=== PATIENT | female | born 1960 | race Caucasian/White ===

== ENCOUNTER 2018-09-01 07:10 | Inpatient (IN) ==
--- NOTE | 2018-08-18 13:24 | PAT Medication Instructions ---
Medication Instructions Date of Service August 18, 2018 Home Medications amantadine HCl 2 cap PO BID levothyroxine 175 mcg PO QAM naproxen 500 mg PO BID PRN natalizumab [Tysabri] 1 dose IV MONTHLY venlafaxine 225 mg PO QAM ASK your surgeon for instructions naproxen 500 mg PO BID PRN ASK your prescriber and surgeon amantadine HCl 2 cap PO BID natalizumab [Tysabri] 1 dose IV MONTHLY Take morning of surgery With a small sip of water, OTHERWISE NOTHING TO EAT OR DRINK AFTER MIDNIGHT: levothyroxine 175 mcg PO QAM venlafaxine 225 mg PO QAM Other Notes If you have any questions please call us at [phone] or [phone] or [phone] or [phone]
--- NOTE | 2018-08-18 13:58 | Anesthesiology Consultation ---
Date of Service August 18, 2018 Assessment & Plan (1) Encounter for pre-operative examination: Chart Review Chart Review: Acceptable Risk for Surgery and Patient seen in Pre Admission Testing Teaching & Discussion Pre-Anesthesia Teaching/Discussion Notes: Instructed NPO after midnight before surgery,except medications with 15 cc of water. Medication instructions provided according to the PAT guidelines. History Surgery Operation Date: 09/01/18 09:50 Proposed Procedures p Right Total Hip Arthroplasty - Jaircarlos Carroll Height/Weight Height: 5 ft 9 in Weight: 111.7 kg Allergies Allergy/AdvReac Type Severity Reaction Status Date / Time paroxetine [From Paxil] Allergy Intermediate THROAT Verified 08/15/18 12:17 SWELLING Medications Home Medications Medication Instructions Recorded Confirmed Last Taken amantadine HCl 2 cap PO BID 08/15/18 08/15/18 Unknown levothyroxine 175 mcg PO QAM 08/15/18 08/15/18 Unknown naproxen 500 mg PO BID PRN 08/15/18 08/15/18 Unknown natalizumab [Tysabri] 1 dose IV MONTHLY 08/15/18 08/15/18 Unknown venlafaxine 225 mg PO QAM 08/15/18 08/15/18 Unknown Past Medical History Medical History Anxiety Cancer BCC S/P EXCISION Hypothyroidism Multiple sclerosis ON NATALIZUMAB AND AMANTADINE (2/2 MS RELATED FATIGUE PER PATIENT); NO RECENT FLARES- "STABLE"; FOLLOWS WITH NEURO Obesity Osteoarthritis Restless leg syndrome Temporomandibular joint disorder Varicose vein of leg S/P INJECTIONS Past Family History Family History Father Family history of diabetes mellitus Past Surgical History Surgical History Ganglion cyst RIGHT ANKLE CYSTECTOMY H/O eye surgery RIGHT EYE FOREIGN BODY EXTRACTION H/O hysterectomy with oophorectomy History of bilateral tubal ligation History of bladder surgery BLADDER SURGERY History of dilatation and curettage X 2 History of removal of cyst BACK CYSTECTOMY Past Anesthesia History No Family Hx of Anesthesia Complications and Other Generalized weakness, fatigue and pain x 24 hours s/p D&C. History of PONV No Motion Sickness Screening History of Motion Sickness: Yes (OCCASIONAL) Social History Smoking Status: Former smoker Do You Dip or Chew Tobacco: No Smoking End Date: QUIT 2017; INTERMITTENT X 20+ YEARS Hx Alcohol Use: Yes Alcohol type: beer and wine alcohol intake frequency: a few times a month Hx Substance Use: No substance use type: does not use Exercise / Class Metabolic Activity II 4-5 Yardwork/Stairs/Walk up hill Review of Systems Patient denies chest pain, shortness of breath, dyspnea on exertion, cough, wheezing, palpitations. Physical Exam Vital Signs VITALS BP 113/68 P 73 TEMP 98.3 SP02 98%RA RESP 18 PHYSICAL Full neck and c-spine range of motion. Mild cervicalgia with extension. Full TMJ range of motion. TMD 4 finger breaths Mallampati Score 3 Dentition: missing molars Lungs: clear throughout to auscultation Cardiac: regular rate and rhythm, no murmurs noted Spine: normal Carotid arteries: negative bruit Extremities: no edema Large tongue. Testing Electrocardiogram Date: 01/21/18 SR at 73bpm. Chest X-Ray Date: 01/21/18 Findings: + NAD Echocardiogram Date: 02/12/18 LVEF 55-60%. No significant valvular disease. Stress Test Date: 02/12/18 Type: nuclear SPECT perfusion images considered "within normal limits." No significant ischemia or infarction noted. post stress LVEF 77%. 59% MPHR. Laboratory Results 08/18/18 14:38 08/18/18 14:38 Blood Type O Positive 08/18/18 14:38 Antibody Screen NEGATIVE 08/18/18 14:38 PT 10.3 Seconds (9.0-12.0) 08/18/18 14:38 INR 1.0 (0.9-1.1) 08/18/18 14:38 APTT 24.6 Seconds (21.0-31.0) 08/18/18 14:38 Urine Color Dark Yellow 08/18/18 14:38 Urine Appearance Clear (Clear) 08/18/18 14:38 Urine pH 5.0 (4.5-7.5) 08/18/18 14:38 Ur Specific [place] 1.034 (1.000-1.030) H 08/18/18 14:38 Urine Protein Negative (Negative) 08/18/18 14:38 Urine Glucose (UA) Negative (Negative) 08/18/18 14:38 Urine Ketones Trace (Negative) H 08/18/18 14:38 Urine Nitrite Negative (Negative) 08/18/18 14:38 Ur Leukocyte Esterase Negative (Negative) 08/18/18 14:38
[2018-08-18 15:31] LABS: Hematocrit (blood only) 35.6 % (37-47); Hemoglobin 12.2 g/dL (12.0-16.0); Mean Corpuscular Hgb Conc 34.3 g/dL (32-36); Mean Corpuscular Volume 93.2 fL (80-100); Mean Platelet Volume 9.7 fL (7.4-10.4); Nucleated RBC # (auto) 0.21 K/uL (0-0); Nucleated RBC % (auto) 4.3 %; Platelet Count 177 K/uL (130-400); RDW Coefficient of Variation 14.1 % (11.5-14.5); RDW Standard Deviation 47.9 fL (36.4-46.3); Red Blood Count 3.82 M/uL (4.2-5.4); White Blood Count 4.93 K/uL (4.8-10.8)
[2018-08-18 15:35] LABS: Appearance Urine Clear (Clear); Blood Urine Negative (Negative); Color Urine Dark Yellow; Glucose Urine UA Negative (Negative); Ketones Urine Trace (Negative); Leukocyte Esterase Urine Negative (Negative); Nitrite Urine Negative (Negative); Protein Urine Negative (Negative); Specific Gravity Urine 1.034 (1.000-1.030); Urobilinogen Urine Negative (Negative)
[2018-08-18 15:42] LABS: Bilirubin Urine Negative (Negative); Ictotest Urine Negative (Negative)
[2018-08-18 15:44] LABS: Albumin Level 3.6 gm/dl (3.4-5.0); BUN Creatinine Ratio 19.6 (10-20); Calcium 8.8 mg/dl (8.5-10.1); Creatinine Clr Calc Pharmacy 124.5 ml/min; Est GFR (African American) 112.4; Potassium 3.7 mmol/L (3.5-5.1)
[2018-08-18 15:47] LABS: Albumin Globulin Ratio 1.3 (0.9-2); Bilirubin,Total 0.6 mg/dl (0.2-1); Globulin 2.8 gm/dl (2.5-4.0); Total Protein 6.4 gm/dl (6.4-8.2)
[2018-08-18 15:50] LABS: Partial Thromboplastin Ratio 0.9; Partial Thromboplastin Time 24.6 Seconds (21.0-31.0); Prothrombin Time 10.3 Seconds (9.0-12.0)
[2018-08-18 16:21] LABS: Basophils # (auto) 0.07 K/uL (0-0.2); Basophils % (auto) 1.4 %; Eosinophils # (auto) 0.22 K/uL (0-0.5); Eosinophils % (auto) 4.5 %; Immature Granulocytes # (auto) 0.07 K/uL (0.00-0.02); Immature Granulocytes % (auto) 1.4 %; Lymphocytes % (auto) 50.7 %; Monocytes # (auto) 0.28 K/uL (0.11-0.59); Monocytes % (auto) 5.7 %; Neutrophils # (auto) 1.79 K/uL (1.4-6.5); Neutrophils % (auto) 36.3 %; RBC Morphology Unremarkable
[~2018-09-01 07:10] MED LIST: ACETAMINOPHEN 500 MG TAB PO SCH; BUPIVACAINE 0.5 % 5 MG/1 ML PF 10ML VIAL ONE; CEFAZOLIN 2000MG 2,000 MG/15 ML SYR IV SCH; CeleBREX 200 MG CAP PO SCH; FAMOTIDINE 20 MG TAB PO SCH; LR 500ML BOLUS, THEN 15ML/HR IV SCH; LR 60ML/HR IV SCH; METOCLOPRAMIDE HCL 10 MG TABLET PO SCH; ROPIVACAINE 0.5% HCL/PF 150 MG, BUPIVACAINE 0.5% MPF 30 ML, EPINEPHrine 30MG/30ML (OR U... INFIL SCH; TRANEXAMIC ACID 1,000 MG **IV Intra-op IV SCH; TRANEXAMIC ACID 1,000 MG **IV Pre-op IV SCH; dexAMETHasone 4 MG TAB PO SCH
[2018-09-01] MEDS ORDERED: ACETAMINOPHEN 1,000 MG/100 ML VIAL IV ONE (07:30)
[2018-09-01] MEDS ORDERED: ATROPINE SULFATE 0.1 MG/ML 10ML SYR IV PRN (07:30)
[2018-09-01] MEDS ORDERED: PHENYLEPHRINE 100MCG/ML 5ML SYR IV PRN (07:30)
[2018-09-01] MEDS ORDERED: ONDANSETRON INJ 2 MG/ML 2 ML VIAL IV PRN ×2 (07:30→12:59)
[2018-09-01] MEDS ORDERED: HYDROmorphone INJ 1 MG/ML SYRINGE IV PRN (07:30)
[2018-09-01] MEDS ORDERED: PROMETHAZINE HCL 12.5 MG in SODIUM CHLORIDE 0.9% 50 ML IV PRN (07:30)
[2018-09-01] MEDS ORDERED: ePHEDrine sulfate 50 MG/ML AMP IV PRN (07:30)
[2018-09-01] MEDS ORDERED: LIDOCAINE HCL 2% 2 ML VIAL/AMP(20MG/ML) INFIL ONE (07:55)
[2018-09-01] MEDS ORDERED: PROPOFOL IV EMULSION 10 MG/ML 20 ML VIAL IV ONE (07:55)
[2018-09-01] MEDS ORDERED: ONDANSETRON INJ 2 MG/ML 2 ML VIAL ONE (07:55)
[2018-09-01] MEDS ORDERED: fentaNYL citrate 100 MCG/2 ML VIAL ONE ×2 (07:55→10:15)
[2018-09-01] MEDS ORDERED: ROCURONIUM BROMIDE 10 MG/ML 5 ML VIAL ONE (07:55)
[2018-09-01] MEDS ORDERED: DEXAMETHASONE SOD INJ 4 MG/ML VIAL ONE (07:55)
[2018-09-01] MEDS ORDERED: MIDAZOLAM HCL 1 MG/ML 2ML VIAL ONE (07:55)
--- NOTE | 2018-09-01 08:38 | History & Physical Report ---
Date of Service September 01, 2018 Assessment & Plan (1) Degenerative joint disease of right hip: plan is to admit and undergo right migue and home dc tomorrow. History of Present Illness Chief Complaint: right hip pain Primary Care Provider: Nicholas Chou pt with right hip pain for years, cant walk well, has tried therapy and nsaids with no relief. ready for migue Allergies Allergy/AdvReac Type Severity Reaction Status Date / Time paroxetine [From Paxil] Allergy Intermediate THROAT Verified 09/01/18 07:38 SWELLING Home Medications Home Medications Medication Instructions Recorded Confirmed Type amantadine HCl 2 cap PO BID 08/15/18 09/01/18 History levothyroxine 175 mcg PO QAM 08/15/18 09/01/18 History naproxen 500 mg PO BID PRN 08/15/18 09/01/18 History natalizumab [Tysabri] 1 dose IV MONTHLY 08/15/18 09/01/18 History venlafaxine 225 mg PO QAM 08/15/18 09/01/18 History varenicline [Chantix] 1 mg PO DAILY 09/01/18 09/01/18 History Past Med/Surg History Medical History Anxiety Cancer BCC S/P EXCISION Hypothyroidism Multiple sclerosis ON NATALIZUMAB AND AMANTADINE (2/2 MS RELATED FATIGUE PER PATIENT); NO RECENT FLARES- "STABLE"; FOLLOWS WITH NEURO Obesity Osteoarthritis Restless leg syndrome Temporomandibular joint disorder Varicose vein of leg S/P INJECTIONS Surgical History Ganglion cyst RIGHT ANKLE CYSTECTOMY H/O eye surgery RIGHT EYE FOREIGN BODY EXTRACTION H/O hysterectomy with oophorectomy History of bilateral tubal ligation History of bladder surgery BLADDER SURGERY History of dilatation and curettage X 2 History of removal of cyst BACK CYSTECTOMY Family History Father Family history of diabetes mellitus Social History Current Living Situation: Family Other Information That Helps Us Care for You: No Feels Safe at Home: Yes Safety Concerns: Feels Safe At This Time Smoking Status: Former smoker Do You Dip or Chew Tobacco: No Smoking End Date: QUIT 2017; INTERMITTENT X 20+ YEARS Hx Alcohol Use: Yes Alcohol type: beer and wine Alcohol Intake Frequency: a few times a month Hx Substance Use: No Beliefs That Will Affect Care: None Preferred Language: Ukrainian Communication Ability: Effective 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: No Physical Exam 2 Vital Signs (Past 24 Hours): Last Vital Signs Temp 36.9 C 09/01/18 07:42 Pulse 77 09/01/18 07:42 Resp 20 09/01/18 07:42 BP 133/96 09/01/18 07:42 Pulse Ox 98 09/01/18 07:42 Constitutional: WD/WN, vitals as above Neck: trachea midline, no thyromegaly Respiratory: normal respiratory effort, lungs clear to auscultation Cardiovascular: RRR, no murmur, no edema Gastrointestinal (Abdomen): normal bowel sounds, soft, nontender, no hepatosplenomegaly Musculoskeletal: Hip: + limited ROM of hip, + hip ROM with crepitation, + FADIR test positive and + log roll test positive Results & Data Medications Administered Acetaminophen (Tylenol) 1,000 mg PO PREOP ASHTYN Stop: 09/01/18 18:00 Last Admin: 09/01/18 07:58 Dose: 1,000 mg Celecoxib (Celebrex) 200 mg PO PREOP ASHTYN Stop: 09/01/18 18:00 Last Admin: 09/01/18 07:59 Dose: 200 mg Dexamethasone (Decadron) 8 mg PO PREOP ASHTYN Stop: 09/01/18 18:00 Last Admin: 09/01/18 07:59 Dose: 8 mg Famotidine (Pepcid) 20 mg PO PREOP ASHTYN Stop: 09/01/18 18:00 Last Admin: 09/01/18 07:59 Dose: 20 mg Lactated Ringer's (Lr) 1,000 mls @ 15 mls/hr IV .Q24H ASHTYN Stop: 09/01/18 18:00 Last Admin: 09/01/18 08:02 Dose: 500 mls/hr Metoclopramide HCl (Reglan) 10 mg PO PREOP ASHTYN Stop: 09/01/18 18:00 Last Admin: 09/01/18 07:59 Dose: 10 mg
[2018-09-01] MEDS ORDERED: ORTHO JOINT ANESTHETIC ONE (08:55)
[2018-09-01] MEDS ORDERED: POVIDONE-IODINE OP SOLN 30 ML BTL ONE (08:55)
[2018-09-01] MEDS ORDERED: BACITRACIN INJ 50,000 UNIT VIAL ONE (08:56)
[2018-09-01] MEDS ORDERED: GLYCOPYRROLATE 0.2 MG/ML VIAL ONE (10:18)
[2018-09-01] MEDS ORDERED: NEOSTIGMINE METHYLSULFATE 5 MG/5 ML SYR ONE (10:18)
--- NOTE | 2018-09-01 10:41 | Operative Report ---
Post Operative Report Pre & Post Diagnosis Operation Date: 09/01/18 09:40 Pre-Op Diagnosis: Right Hip Osteoarthritis Post-Op Diagnosis: Right Hip Osteoarthritis Procedure Operation Date: 09/01/18 09:40 Actual Procedures p Right Total Hip Arthroplasty(Right) - Jair Carroll Surgeon Jair Carroll Hide Tanner Irving Conteh PA-C Estimated Blood Loss 60 Findings Consistent with Post-Op Diagnosis Specimens None Drains 1 Complications none Disposition Disposition: Recovery Room Description of Procedure IMPLANTS USED: [place]wood size 56 mm Trident 2 Tritanium acetabular cup, one acetabular screw, 36 mm X3 elevated liner, a #5 Accolade 2 stem with a 127 degree neck, 36 mm -5 ceramic head INDICATIONS: Mrs. Braun is a pleasant female who has unfortunately failed all forms of conservative measures. Therefore, they have has decided to undergo elective surgical intervention. All risks and benefits of the surgery were discussed with the patient and the family in entirety. PROCEDURE: The patient was brought to the operating room and properly identified by myself, anesthesia, and staff. Patient was given a spinal anesthetic and placed on the operating table with the right hip up. The hip was then prepped and draped in the standard orthopedic fashion. We made a standard posterolateral approach over the greater trochanteric area. We then dissected down to subcutaneous tissue until the fascia was identified. We incised the fascia in line with the skin incision. We then split the gluteus hemanth muscles with finger dissection. We then put the Charnley retractor in place. We placed the retractor underneath the gluteus medius to expose the piriformis. The piriformis was then tagged with a tag suture and released from the insertion from the greater trochanteric area with the use of electrocautery. We then performed a T capsulotomy and the femoral head and neck were atraumatically dislocated. We then performed femoral neck osteotomy at the pre-template site. We removed the femoral head and neck without difficulty. We then placed the retractor around the acetabulum. We then began to ream the acetabulum to the appropriate size. We then impacted the cup into place and had a very good fixation within the pelvis. We then put the liner in place as well. Then using multiple size approaches from the Accolade 2 system a size #5 fit very nicely in the proximal femur. I then put trial components in place. WE had very good range of motion, excellent stability, and excellent leg length equality. We removed the trial components and irrigated the wound. We then impacted the components in place and irrigated the wound once more. We then closed the capsule and fascia with a 0 Vicryl suture, the deep dermis with 2-0 Vicryl suture, and finally the skin with a running 3-0 Vicryl subcuticular stitch. A sterile dressing was applied. The patient was taken to the recovery room in stable condition. Due to the complex nature of the procedure, the entire surgery was performed with the operational assistance of Irving Conteh PA-C. The assistant press operator was under direct supervision, was involved in the actual performance of all aspects of the surgical procedure including hemostasis, tissue retraction and incision, instrument management, patient positioning, and wound closure. I attest to the content of the Intraoperative Record and any orders documented therein. Any exceptions are noted below.
[2018-09-01] MEDS: fentaNYL citrate 100 MCG/2 ML VIAL IV PRN ×4 (11:35→11:57)
--- NOTE | 2018-09-01 12:34 | Anesthesiology Progress Note ---
Date of Service September 01, 2018 Anesthesia Post Procedure Vital Signs Vital Signs: Temp Pulse Pulse Resp BP Pulse Ox 09/01/18 12:20 88 15 114/73 99 09/01/18 12:10 77 15 106/70 97 09/01/18 12:00 36.1 C L 85 17 118/74 96 09/01/18 11:50 78 18 113/72 98 09/01/18 11:40 79 20 122/67 98 09/01/18 11:30 79 15 125/82 98 09/01/18 11:20 82 15 119/72 98 09/01/18 11:10 36.7 C 92 H 13 162/86 H 97 09/01/18 07:42 36.9 C 77 20 133/96 98 Pain Intensity Right Hip: Pain Intensity: 3 Notes Mental Status: alert / awake / arousable Patient Amnestic to Procedure: Yes Nausea / Vomiting: adequately controlled Pain: adequately controlled Airway Patency, RR, SpO2: stable & adequate BP & HR: stable & adequate Hydration State: stable & adequate Anesthetic Complications: no major complications apparent Notes: Pt doing well, VSS. No complaints.
[2018-09-01] MEDS ORDERED: TRAMADOL HCL 50 MG TABLET PO PRN (12:59)
[2018-09-01] MEDS ORDERED: BISACODYL 10 MG SUPP PR PRN (12:59)
[2018-09-01] MEDS ORDERED: NALOXONE HCL 0.4 MG/1 ML VIAL/CARP IV PRN (12:59)
[2018-09-01] MEDS ORDERED: MAGNESIUM HYDROXIDE SUSP 30 ML UDC PO PRN (12:59)
[2018-09-01] MEDS ORDERED: METOCLOPRAMIDE HCL INJ 5 MG/ML 2 ML VIAL IV PRN (12:59)
[2018-09-01] MEDS ORDERED: SODIUM CHLORIDE 0.9% 1000ML 1,000 ML IV SCH (13:30)
[2018-09-01] MEDS: OXYCODONE HCL IR 5 MG TAB (IMMEDIATE RELEASE) PO PRN ×2 (14:02→20:49)
[2018-09-01] MEDS: CEFAZOLIN 2000MG 2,000 MG/15 ML SYR IV SCH ×2 (17:14→23:59)
[2018-09-01] MEDS ORDERED: TRANEXAMIC ACID 1,000 MG in 0.9 % SODIUM CHLORIDE 100 ML IV SCH (17:30)
[2018-09-01] MEDS: DOCUSATE SODIUM 100 MG CAP PO SCH (20:50)
[2018-09-01] MEDS: SENNA 8.6 MG TAB PO SCH (20:50)
[2018-09-01] MEDS: ACETAMINOPHEN 500 MG TAB PO SCH (20:50)
[2018-09-01] MEDS: ASPIRIN 81 MG ECTAB PO SCH (20:50)
[2018-09-01] MEDS: AMANTADINE HCL 100 MG CAPSULE PO SCH (20:51)
[2018-09-02] MEDS: OXYCODONE HCL IR 5 MG TAB (IMMEDIATE RELEASE) PO PRN ×4 (03:08→19:50)
[2018-09-02] MEDS: LEVOTHYROXINE SODIUM 175 MCG TABLET PO SCH (05:14)
[2018-09-02] MEDS: ACETAMINOPHEN 500 MG TAB PO SCH ×3 (05:14→21:54)
[2018-09-02 06:43] LABS: Basophils # (auto) 0.02 K/uL (0-0.2); Basophils % (auto) 0.2 %; Eosinophils % (auto) 1.1 %; Hemoglobin 9.6 g/dL (12.0-16.0); Immature Granulocytes # (auto) 0.01 K/uL (0.00-0.02); Immature Granulocytes % (auto) 0.1 %; Lymphocytes % (auto) 25.8 %; Mean Corpuscular Hgb Conc 33.1 g/dL (32-36); Mean Corpuscular Volume 96.7 fL (80-100); Mean Platelet Volume 9.5 fL (7.4-10.4); Monocytes % (auto) 7.5 %; Neutrophils # (auto) 6.08 K/uL (1.4-6.5); Neutrophils % (auto) 65.3 %; Nucleated RBC # (auto) 0.07 K/uL (0-0); Nucleated RBC % (auto) 0.8 %; Platelet Count 160 K/uL (130-400); RDW Coefficient of Variation 14.6 % (11.5-14.5); RDW Standard Deviation 51.4 fL (36.4-46.3); White Blood Count 9.31 K/uL (4.8-10.8)
[2018-09-02 07:17] LABS: BUN Creatinine Ratio 15.7 (10-20); Calcium 8.3 mg/dl (8.5-10.1); Creatinine Clr Calc Pharmacy 90.8 ml/min; Est GFR (African American) 83.9; Est GFR (Non-African American) 72.4; Potassium 4.4 mmol/L (3.5-5.1)
--- NOTE | 2018-09-02 07:38 | Anesthesiology Progress Note ---
Date of Service September 02, 2018 Anesthesia Post Procedure Vital Signs Vital Signs: Temp Pulse Pulse Pulse Pulse Resp BP 09/02/18 03:53 36.9 C 73 18 94/60 L 09/02/18 00:07 86 09/01/18 23:19 36.9 C 118 H 18 104/63 09/01/18 19:02 36.8 C 85 18 103/73 09/01/18 15:51 36.7 C 90 18 123/80 09/01/18 14:40 89 16 105/68 09/01/18 13:40 84 16 114/79 09/01/18 13:16 70 16 102/67 09/01/18 12:40 36.7 C 82 16 106/68 09/01/18 12:20 88 15 114/73 09/01/18 12:10 77 15 106/70 09/01/18 12:00 36.1 C L 85 17 118/74 09/01/18 11:50 78 18 113/72 09/01/18 11:40 79 20 122/67 09/01/18 11:30 79 15 125/82 09/01/18 11:20 82 15 119/72 09/01/18 11:10 36.7 C 92 H 13 162/86 H 09/01/18 07:42 36.9 C 77 20 133/96 Pulse Ox 09/02/18 03:53 96 09/02/18 00:07 09/01/18 23:19 91 09/01/18 19:02 97 09/01/18 15:51 94 09/01/18 14:40 98 09/01/18 13:40 99 09/01/18 13:16 94 09/01/18 12:40 94 09/01/18 12:20 99 09/01/18 12:10 97 09/01/18 12:00 96 09/01/18 11:50 98 09/01/18 11:40 98 09/01/18 11:30 98 09/01/18 11:20 98 09/01/18 11:10 97 09/01/18 07:42 98 Pain Intensity Right Hip: Pain Intensity: 6 Notes Mental Status: alert / awake / arousable and participated in evaluation Patient Amnestic to Procedure: Yes Nausea / Vomiting: adequately controlled Pain: adequately controlled Airway Patency, RR, SpO2: stable & adequate BP & HR: stable & adequate Hydration State: stable & adequate Anesthetic Complications: no major complications apparent and Pt Satisfied with anesthetic care
[2018-09-02] MEDS ORDERED: dexAMETHasone 10 MG in SYRINGE 0 ML IV SCH (08:00)
--- NOTE | 2018-09-02 08:52 | Progress Note ---
DATE: 09/02/2018 SUBJECTIVE: The patient is postop day 1 status post right total hip arthroplasty. She is currently sitting up at the bedside. She is alert and oriented. She states that she is having some mild to moderate pain off and on, which she is tolerating well. We discussed plans for discharge. The patient states that she lives alone and she is one who does not like to ask for help. She has family in the area; however, they are busy with work and she is concerned now about going home. We discussed the case management can talk to her today about possibly going to a skilled facility for a short period of time to increase her strength and abilities before she goes home. She denies any shortness of breath, chest pain or lightheadedness at this time and she has no other complaints at this time. OBJECTIVE: Dressings are clean, dry and intact. Thigh is soft and nontender. Calves are soft, nontender. Neurovascularly intact. Toes were mobile. Vital signs were stable. She is afebrile and hemoglobin is 9.6. ASSESSMENT: Right total hip arthroplasty, postop day 1. PLAN: PT and OT protocols today. DVT prophylaxis with aspirin, SCDs and OSMIN hose. Pain regimen as written currently. DISCHARGE PLANNING: Case management to discuss discharge plans with the patient today, possible need for skilled facility prior to returning home.
[2018-09-02] MEDS: VARENICLINE 1 MG TAB PO SCH (09:05)
[2018-09-02] MEDS: AMANTADINE HCL 100 MG CAPSULE PO SCH ×2 (09:05→21:53)
[2018-09-02] MEDS: MULTIVITAMIN TAB PO SCH (09:05)
[2018-09-02] MEDS: DOCUSATE SODIUM 100 MG CAP PO SCH ×2 (09:05→21:54)
[2018-09-02] MEDS: VENLAFAXINE HCL XR 75 MG CAPXR PO SCH (09:05)
[2018-09-02] MEDS: ASPIRIN 81 MG ECTAB PO SCH ×2 (09:06→21:54)
[2018-09-02] MEDS: SENNA 8.6 MG TAB PO SCH (21:54)
[2018-09-03] MEDS: OXYCODONE HCL IR 5 MG TAB (IMMEDIATE RELEASE) PO PRN ×5 (00:06→19:53)
[2018-09-03] MEDS: LEVOTHYROXINE SODIUM 175 MCG TABLET PO SCH (05:35)
[2018-09-03] MEDS: ACETAMINOPHEN 500 MG TAB PO SCH ×3 (05:35→22:12)
[2018-09-03] MEDS: MULTIVITAMIN TAB PO SCH (07:28)
[2018-09-03] MEDS: AMANTADINE HCL 100 MG CAPSULE PO SCH ×2 (07:28→21:28)
[2018-09-03] MEDS: VARENICLINE 1 MG TAB PO SCH (07:28)
[2018-09-03] MEDS: VENLAFAXINE HCL XR 75 MG CAPXR PO SCH (07:28)
[2018-09-03] MEDS: ASPIRIN 81 MG ECTAB PO SCH ×2 (07:28→21:42)
[2018-09-03] MEDS: DOCUSATE SODIUM 100 MG CAP PO SCH ×2 (07:28→21:43)
--- NOTE | 2018-09-03 08:54 | Progress Note ---
DATE: 09/03/2018 SUBJECTIVE: The patient is postop day 2 status post right total hip arthroplasty by Dr. Carroll. She is currently sitting up, eating breakfast this morning and is awake and alert. She states that she had somewhat of a rough evening. She did sleep well initially; however, she got behind on her pain medications and she had a fair amount of pain in the early a.m. The pain is now under better control after taking medication and she was doing better. She denies any shortness of breath, chest pain or lightheadedness and denies calf tenderness. She is currently waiting for authorization for [facility] in [place] versus a skilled facility. OBJECTIVE: Dressing is clean, dry and intact. She continues to have her drain present and her latest drain amount was 75 at midnight last night. We will recheck to see what she is draining this morning. Vital signs are stable and she is afebrile. Thigh is soft and nontender. Calves were soft, nontender. Neurovascularly is intact. Leg lengths appear equal and hip appears located. ASSESSMENT: Right total hip arthroplasty postop day #2. PLAN: Pending authorization. She is planning for [facility], rehab facility versus skilled facility if that is not approved. We will continue her on PT and OT protocols and continue current pain regimen as well as DVT prophylaxis with her aspirin, SCDs and OSIMN hose.
[2018-09-03] MEDS: SENNA 8.6 MG TAB PO SCH (21:42)
[2018-09-04] MEDS: OXYCODONE HCL IR 5 MG TAB (IMMEDIATE RELEASE) PO PRN ×2 (02:19→10:07)
[2018-09-04] MEDS: ACETAMINOPHEN 500 MG TAB PO SCH ×2 (05:44→13:53)
[2018-09-04] MEDS: LEVOTHYROXINE SODIUM 175 MCG TABLET PO SCH (05:44)
--- NOTE | 2018-09-04 07:28 | Orthopedic Progress Note ---
Date of Service September 04, 2018 Assessment & Plan (1) S/P total hip arthroplasty: POD# 3 s/p Right PARTH -Pain management -DVT prophylaxis -PT/OT -D/C planning-awaiting authrorization and placement to rehab vs SNF Subjective Patient is POD#3 Right PARTH. Doing well, pain controlled. Is well at rest but increased pain with weight bearing. Denies any other complaints, no CP, SOB, N/V/D, dizziness. Physical Exam Vital Signs (Past 24 Hours): Last Vital Signs Temp 37.1 C 09/03/18 23:04 Pulse 83 09/03/18 23:04 Resp 16 09/03/18 23:04 BP 109/75 09/03/18 23:04 Pulse Ox 95 09/03/18 23:04 Physical Exam: Dressing c/d/i, hemovac in place. N/V status and sensation intact. No calf tenderness, toes mobile
[2018-09-04] MEDS: ASPIRIN 81 MG ECTAB PO SCH (08:27)
[2018-09-04] MEDS: VARENICLINE 1 MG TAB PO SCH (08:27)
[2018-09-04] MEDS: DOCUSATE SODIUM 100 MG CAP PO SCH (08:28)
[2018-09-04] MEDS: MULTIVITAMIN TAB PO SCH (08:28)
[2018-09-04] MEDS: AMANTADINE HCL 100 MG CAPSULE PO SCH (08:28)
[2018-09-04] MEDS: VENLAFAXINE HCL XR 75 MG CAPXR PO SCH (08:28)
--- NOTE | 2018-09-05 16:55 | Discharge Summary ---
DISCHARGE DIAGNOSIS: Degenerative joint disease, right hip. SECONDARY DIAGNOSES: Anxiety, hypothyroidism, multiple sclerosis, obesity, osteoarthritis, restless leg syndrome, TMJ disorder, history of varicose veins, history of skin cancer. CONSULTS: None. COMPLICATIONS: None. PROCEDURES: Right total hip arthroplasty performed by Dr. Carroll on 09/01/2018. BRIEF HISTORY: As dictated in history and physical. HOSPITAL SUMMARY: The patient was admitted on the above-noted date had the above-noted surgery performed which she tolerated well. On the first postoperative day, she was currently sitting up at the bedside. She was alert and oriented and states she was having some mild to moderate pain off and on. We discussed plans for discharge and the patient stated that she lived alone and she had family in the area; however, they were busy and were unable to help her. We discussed that case management to talk to her that morning and possibly discuss going to a rehab facility versus skilled facility if authorization was obtained. She was in agreement. Dressings were clean, dry and intact. Thigh was soft, nontender. Calves were soft, nontender. Neurovascularly intact. Toes were mobile. Hemoglobin was 9.6. Vital signs were stable and she was started PT and OT protocols and continued on DVT prophylaxis and pain management. By her second postoperative day, she was eating breakfast and was awake and alert. She stated she had a rough evening and did not sleep well initially; however, she had gotten behind on taking her pain medications and was in a fair amount of pain earlier that morning. The pain was under better control by later that morning and she was doing better. Dressings were intact. Drain had drained 75 mL the previous shift. Vital signs were stable. She was afebrile. Calves were soft and nontender. Neurovascular intact. Leg lengths appeared equal and she was continued on her protocol and waiting for authorization. The rest of her stay was essentially uneventful. By 09/04/2018 she had been denied by her insurance of going to [facility] and several fdc facilities for one reason or another. Patient was doing better in her physical therapy and progressing well. Vital signs were stable. She was afebrile. Dressings clean, dry and intact. Hemovac was put in place, still draining. She had no calf tenderness. Toes were mobile and after discussing with case management, patient felt that she would be able to go home with home health services. She was thusly discharged on 09/04/2018 for further care at home with home health services. For further review, please see chart. LABORATORY AND X-RAY DATA: As per chart. DISCHARGE INSTRUCTIONS: The patient was discharged to home in satisfactory condition on 09/04/2018. DIET: Regular. ACTIVITY: Weightbearing as tolerated on the right lower extremity with walker. Follow PARTH instruction sheets and special care instructions as noted by Dr. Carroll. Follow up with Dr. Carroll in 2 weeks. The patient to call for appointment if one has not been made for you. DISCHARGE MEDICATIONS: Acetaminophen 1000 mg p.o. q. 8 hours, aspirin 81 mg p.o. b.i.d., cefadroxil 500 mg p.o. b.i.d., sennoside 17.2 mg p.o. at bedtime, tramadol 50 mg p.o. q. 4-6 hours p.r.n. Resume home meds as listed and stop taking naproxen.
== END 2018-09-04 19:45 | disposition home health service (06) | DRG 470 ==
LOC: ASU 07:10 → 3E 11:26
DX: Z79.899 Other long term (current) drug therapy; M16.11 Unilateral primary osteoarthritis, right hip; G35 Multiple sclerosis; Z68.35 Body mass index [BMI] 35.0-35.9, adult; Z88.8 Allergy status to other drugs, medicaments and biological substances; E66.9 Obesity, unspecified; Z85.828 Personal history of other malignant neoplasm of skin; Z83.3 Family history of diabetes mellitus; E03.9 Hypothyroidism, unspecified; Z60.2 Problems related to living alone; F41.9 Anxiety disorder, unspecified; Z87.891 Personal history of nicotine dependence

== ENCOUNTER 2022-10-26 07:58 | Observation (INO) ==
--- NOTE | 2022-09-27 10:08 | PAT Medication Instructions ---
Medication Instructions Date of Service September 27, 2022 Home Medications Medication Instructions Recorded sennosides 17.2 mg tablet 17.2 mg PO HS PRN constipation #10 09/04/18 tabs tramadol 50 mg tablet 50 mg PO Q6H PRN pain #30 tabs 09/25/22 tramadol 50 mg tablet 50 mg PO Q6H PRN pain #30 tabs 09/25/22 levothyroxine 175 mcg tablet 175 mcg PO QAM natalizumab 300 mg/15 mL intravenous solution (Tysabri) 1 dose IV MONTHLY sennosides 17.2 mg tablet 17.2 mg PO HS PRN constipation tramadol 50 mg tablet 50 mg PO Q6H PRN pain tramadol 50 mg tablet 50 mg PO Q6H PRN pain acetaminophen 500 mg tablet 500 mg PO TID PRN Pain cholecalciferol (vitamin D3) 50 mcg (2,000 unit) tablet (Vitamin D3) 50 mcg PO QAM duloxetine 60 mg capsule,delayed release 60 mg PO QAM famotidine 40 mg tablet 40 mg PO QAM gabapentin 300 mg capsule 300 mg PO TID glimepiride 4 mg tablet 8 mg PO QAM losartan 25 mg tablet 25 mg PO QAM naproxen 250 mg tablet 250 mg PO BID PRN Pain tirzepatide 2.5 mg/0.5 mL subcutaneous pen injector (Mounjaro) 2.5 mg subcut WK Continue as directed tirzepatide 2.5 mg/0.5 mL subcutaneous pen injector (Mounjaro) 2.5 mg subcut WK ASK your surgeon for instructions naproxen 250 mg tablet 250 mg PO BID PRN Pain ASK your prescriber and surgeon natalizumab 300 mg/15 mL intravenous solution (Tysabri) 1 dose IV MONTHLY DO NOT take the morning of surgery cholecalciferol (vitamin D3) 50 mcg (2,000 unit) tablet (Vitamin D3) 50 mcg PO QAM glimepiride 4 mg tablet 8 mg PO QAM losartan 25 mg tablet 25 mg PO QAM Take morning of surgery With a small sip of water, OTHERWISE NOTHING TO EAT OR DRINK AFTER MIDNIGHT: levothyroxine 175 mcg tablet 175 mcg PO QAM tramadol 50 mg tablet 50 mg PO Q6H PRN pain (if needed) tramadol 50 mg tablet 50 mg PO Q6H PRN pain (if needed) acetaminophen 500 mg tablet 500 mg PO TID PRN Pain (if needed) duloxetine 60 mg capsule,delayed release 60 mg PO QAM famotidine 40 mg tablet 40 mg PO QAM gabapentin 300 mg capsule 300 mg PO TID Take evening before surgery sennosides 17.2 mg tablet 17.2 mg PO HS PRN constipation (if needed) tramadol 50 mg tablet 50 mg PO Q6H PRN pain (if needed) tramadol 50 mg tablet 50 mg PO Q6H PRN pain (if needed) acetaminophen 500 mg tablet 500 mg PO TID PRN Pain (if needed) gabapentin 300 mg capsule 300 mg PO TID Other Notes If you have any questions please call us at [phone] or [phone] or [phone] or [phone]
--- NOTE | 2022-10-02 13:33 | Anesthesiology Consultation ---
Date of Service October 02, 2022 Assessment & Plan (1) Encounter for pre-operative examination: - check BSG am DOS. - anesthesia reaction: Pt states yrs ago after D&C had limb stiffness the following day, she states has since undergone multiple surgeries without any recurrence. - Outpatient joint assessment: Patient is currently scheduled for inpatient pathway. If re-evaluated pending system levels during current pandemic/surgeon requests outpatient pathway, patient is not recommended candidate for outpatient joint program from anesthesia standpoint. Chart Review Chart Review: Acceptable Risk for Surgery and Patient seen in Pre Admission Testing Teaching & Discussion Pre-Anesthesia Teaching/Discussion Notes: Instructed NPO after midnight before surgery, except medications with 15 cc of water. Medication instructions provided according to the PAT guidelines. History Surgery Operation Date: 10/26/22 10:30 Proposed Procedures p Left Anterior Total Hip Arthroplasty - Nick Parrish DO Height/Weight Height: 5 ft 9 in Weight: 98.883 kg Allergies Allergy/AdvReac Type Severity Reaction Status Date / Time paroxetine [From Paxil] Allergy Intermediate THROAT Verified 09/01/18 07:38 SWELLING Medications Home Medications Medication Instructions Recorded Confirmed Last Taken levothyroxine 175 mcg tablet 175 mcg PO QAM 08/15/18 09/26/22 09/01/18 06:00 natalizumab 300 mg/15 mL 1 dose IV MONTHLY 08/15/18 09/26/22 07/28/18 intravenous solution (Tysabri) sennosides 17.2 mg tablet 17.2 mg PO HS PRN constipation #10 09/04/18 09/26/22 Unknown tabs tramadol 50 mg tablet 50 mg PO Q6H PRN pain #30 tabs 09/25/22 09/26/22 Unknown tramadol 50 mg tablet 50 mg PO Q6H PRN pain #30 tabs 09/25/22 09/26/22 Unknown acetaminophen 500 mg tablet 500 mg PO TID PRN Pain 09/26/22 09/26/22 Unknown cholecalciferol (vitamin D3) 50 50 mcg PO QAM 09/26/22 09/26/22 Unknown mcg (2,000 unit) tablet (Vitamin D3) duloxetine 60 mg capsule,delayed 60 mg PO QAM 09/26/22 09/26/22 Unknown release famotidine 40 mg tablet 40 mg PO QAM 09/26/22 09/26/22 Unknown gabapentin 300 mg capsule 300 mg PO TID 09/26/22 09/26/22 Unknown glimepiride 4 mg tablet 8 mg PO QAM 09/26/22 09/26/22 Unknown losartan 25 mg tablet 25 mg PO QAM 09/26/22 09/26/22 Unknown naproxen 250 mg tablet 250 mg PO BID PRN Pain 09/26/22 09/26/22 Unknown tirzepatide 2.5 mg/0.5 mL 2.5 mg subcut WK 09/26/22 09/26/22 Unknown subcutaneous pen injector (Clovisunmelchorro) Past Medical History Medical History (Updated 10/02/22 @ 13:41 by Wanda Quarles PA-C) Anxiety Cancer BCC S/P EXCISION GERD (gastroesophageal reflux disease) controlled, stable per pt Hemochromatosis elevated liver enzymes - follows w/ Dr Patti borja gastro History of breast abscess History of COVID-19 09/2020 COLD LIKE SYMPTOMS, NO HOSPITALIZATION. NO CURRENT ISSUES Hx of renal failure 2019- after right PARTH - from sepsis from post op infection Hx of sepsis 2019- from post op infection Hypertension stable, controlled per pt Hypothyroidism Multiple sclerosis ON NATALIZUMAB AND AMANTADINE (2/2 MS RELATED FATIGUE PER PATIENT); NO RECENT FLARES- "STABLE"; FOLLOWS WITH NEURO Obesity Type 2 diabetes mellitus NIDDM Varicose vein of leg S/P INJECTIONS Patient denies h/o stroke, seizures, heart attack, heart failure, blood clots or blood transfusions. Exercise / Class Metabolic Activity III < 4 Walking/Shop/Light housework (denies chest discomfort or shortness of breath with usual activities, pt states limits stair walking d/t ortho dysfunction) Past Family History Family History Father Family history of diabetes mellitus Other No family history of adverse response to anesthesia Past Surgical History Surgical History (Updated 10/02/22 @ 13:38 by Wanda Quarles PA-C) Ganglion cyst RIGHT ANKLE CYSTECTOMY H/O eye surgery RIGHT EYE FOREIGN BODY EXTRACTION H/O hysterectomy with oophorectomy History of bilateral tubal ligation History of bladder surgery BLADDER SURGERY History of dilatation and curettage X 2 History of removal of cyst BACK CYSTECTOMY History of right hip replacement 2019 [facility] [place]; revision Hx of colonoscopy Past Anesthesia History No Family Hx of Anesthesia Complications and Other (pt states with previous D&C had limb stiffness the following day, she states has since undergone multiple surgeries without any recurrence) History of PONV No Hx of PONV and No Hx of Motion Sickness Social History Smoking Status: Former smoker tobacco type: cigarettes Smoking cigarettes per day: quit 4 yrs ago Do You Dip or Chew Tobacco: No Hx Alcohol Use: Yes Alcohol type: beer and wine alcohol intake frequency: holidays/special occasions only Hx Substance Use: No substance use type: does not use Review of Systems Patient denies chest pain, shortness of breath, dyspnea on exertion, snoring, witnessed apneas, fever, chills, cough, wheezing, or palpitations. Physical Exam Vital Signs Vitals BP 106/66 P 80 TEMP 97.7 SP02 97% on RA RESP 18 Physical Full cervical extension range of motion without pain TMD 3.5 finger breadths Mallampati Score 3 Dentition: several chipped teeth; denies loose teeth, caps/crowns, implants or bridges Lungs: normal respiratory effort. Clear throughout to auscultation, no adventitious breath sounds Cardiac: regular rate and rhythm, no murmurs noted Carotid arteries: negative bruit bilat Lab Results Anesthesia Preop Results Results Anesthesia Widget: WBC 10.41 K/ul (4.8-10.8) 10/02/22 Hgb 13.1 g/dl (12.0-16.0) 10/02/22 Hct 38.5 % (37.0-47.0) 10/02/22 Plt 205 K/uL (130-400) 10/02/22 Na 141 mmol/L (136-145) 10/02/22 K 4.1 mmol/L (3.5-5.1) 10/02/22 Cl 107 mmol/L (98-107) 10/02/22 CO2 26 mmol/L (21-32) 10/02/22 BUN 17 mg/dl (6-23) 10/02/22 Creat 0.73 mg/dl (0.6-1.2) 10/02/22 Glucose Level 67 mg/dl (70-99(Fasting)) L 10/02/22 PT 10.6 Seconds (9.0-12.0) 10/02/22 PTT 27.6 Seconds (21.0-31.0) 10/02/22 INR 1.0 (0.9-1.1) 10/02/22 HA1c 5.8 % (4.5-5.6) H 10/02/22 Blood Type O Positive 10/02/22 Antibody Screen NEGATIVE 10/02/22 Testing Electrocardiogram Date: 10/02/22 NSR, rate 67 bpm Chest X-Ray Date: 10/02/22 No prior studies are available for comparison at the time of dictation. The cardiomediastinal silhouette is unremarkable. The lungs and pleural spaces are clear. There is no pneumothorax. The skeletal structures are osteopenic. The bony thorax appears intact. Degenerative change is seen throughout the thoracic spine. Surgical clips are noted in the upper abdomen. IMPRESSION: No active disease in the chest. COVID-19 Risk Screen Screening Information COVID-19 Screen Date: 10/02/22 Exposure 21 Days Family/Household +COVID Last 21 Days: No Exposure 10 Days Any COVID Exposure Last 10 Days: No Symptoms Last 10 Days Experienced COVID Sx Last 10 Days: No + COVID 0-90 Days COVID + in Last 0-90 Days: No
[~2022-10-26 07:58] MED LIST changes: -BUPIVACAINE 0.5 % 5 MG/1 ML PF 10ML VIAL ONE; -CEFAZOLIN 2000MG 2,000 MG/15 ML SYR IV SCH; -CeleBREX 200 MG CAP PO SCH; +GABAPENTIN 600 MG DOSE PO SCH; -METOCLOPRAMIDE HCL 10 MG TABLET PO SCH; +ORTHO JOINT MIX INFIL SCH; +ROPIVACAINE 0.5% 5 MG/ML 30 ML VIAL ONE; -ROPIVACAINE 0.5% HCL/PF 150 MG, BUPIVACAINE 0.5% MPF 30 ML, EPINEPHrine 30MG/30ML (OR U... INFIL SCH; +ceFAZolin 2000MG 2,000 MG/15 ML SYR IV SCH
[2022-10-26] MEDS ORDERED: LIDOCAINE 2% MPF LOCAL 5 ML VIAL ONE (09:24)
[2022-10-26] MEDS ORDERED: MIDAZOLAM HCL 1 MG/ML 2ML VIAL ONE (09:24)
[2022-10-26] MEDS ORDERED: ONDANSETRON INJ 2 MG/ML 2 ML VIAL ONE (09:24)
[2022-10-26] MEDS ORDERED: PROPOFOL IV EMULSION 10 MG/ML 20 ML VIAL IV ONE (09:24)
[2022-10-26] MEDS ORDERED: fentaNYL citrate PF 100 MCG/2 ML VIAL ONE ×2 (09:24→12:08)
[2022-10-26] MEDS ORDERED: DEXAMETHASONE SOD INJ 4 MG/ML VIAL ONE (09:24)
--- NOTE | 2022-10-26 09:37 | History & Physical Bridge Note ---
Date of Service October 26, 2022 History & Physical Bridge Note I have examined the patient, reviewed the History & Physical and in the interval since the performance of the History & Physical I have noted the following changes of clinical significance: no changes noted
[2022-10-26] MEDS ORDERED: ONDANSETRON INJ 2 MG/ML 2 ML VIAL IV PRN (10:46)
[2022-10-26] MEDS ORDERED: ATROPINE SULFATE 0.1 MG/ML 10ML SYR IV PRN (10:46)
[2022-10-26] MEDS ORDERED: PROMETHAZINE HCL 6.25 MG in SODIUM CHLORIDE 0.9% 50 ML IV PRN (10:46)
[2022-10-26] MEDS ORDERED: KETOROLAC 30 MG/ML VIAL IV PRN (10:46)
[2022-10-26] MEDS ORDERED: ORTHO JOINT ANESTHETIC ONE (11:26)
[2022-10-26] MEDS ORDERED: LABETALOL HCL IV 5 MG/ML 20ML IV ONE (12:24)
[2022-10-26] MEDS ORDERED: GLYCOPYRROLATE 0.2 MG/ML VIAL ONE (12:25)
[2022-10-26] MEDS ORDERED: NEOSTIGMINE METHYLSULFATE 1 MG/ML 10ML VIAL ONE (12:25)
--- NOTE | 2022-10-26 12:29 | Operative Report ---
PG Post Operative Report Pre & Post Diagnosis Operation Date: 10/26/22 10:30 Pre-Op Diagnosis: Osteoarthritis of Left Hip Post-Op Diagnosis: Osteoarthritis of Left Hip I identified the patient and participated in the time-out.: Yes Procedure Operation Date: 10/26/22 10:30 Actual Procedures p Left Anterior Total Hip Arthroplasty(Left) - Nick Parrish DO Surgeon Nick Parrish DO Organic Chemist Nick Schilling PA-C Estimated Blood Loss 300 Findings Consistent with Post-Op Diagnosis Specimens Left femoral head Description of Procedure Implants used I used a ZimmerBiomet total hip arthroplasty system with a size 4 high offset Avenir Complete stem, a 50 mm G7 cup with a 25mm screw, an E1 polyethylene liner, a 36 mm ceramic head with a +3.5 neck. Blank arrived at the hospital for the above procedure. She was seen in the preoperative holding area and the operative extremity was identified and signed. She was given a spinal anesthetic, a preoperative antibiotic, and TXA. She was then taken back to the operating room and laid on the table in the supine position. She was given basic sedation. The operative leg was secured to a Puristst leg positioner. The hip was then prepped and draped in sterile fashion. A timeout was done and the patient and the operative extremity was properly identified. An anterior approach was used. Dissection was taken down through the fascia and the tensor muscle belly was retracted laterally and the rectus was retracted medially. The circumflex vessels were identified and ligated. The capsule was then incised and tagged for later repair. The femoral neck was then cut and the femoral head was removed. The acetabulum was exposed. Time was spent doing a complete circumferential labral release. Sequential reaming of the acetabulum up to a size 49 reamer was done. Final reamings were done under fluoroscopy to ensure appropriate version. A Biomet 50 mm G7 cup was then impacted into place. A single 25 mm screw was placed. The E1 polyethylene liner was then snapped into place. Surrounding soft tissues were then injected with 100 cc of an orthopedic pain control cocktail. The proximal femur was then exposed. Sequential broaching up to a size 4 broach was done. Off that broach a size 36 head with a +3.5 neck was trialed. The hip was reduced and fluoroscopic images showed anatomic alignment of the implants in acceptable length. The broach was removed. The final size 4 high offset Avenir Complete stem was then impacted into place. A ceramic 36 mm head with a +3.5 neck was then impacted onto the stem and the hip was reduced. Final fluoroscopic images showed anatomic alignment of the hip. The capsule was then closed with #1 Vicryl suture. A dilute betadyne lavage was then done for 3 minutes. The joint was then irrigated with normal saline solution. The fascia was closed with #1 PDS suture. Skin was closed with 2-0 Vicryl, corinna, and a Silverlon dressing. She was then transferred to a hospital bed and taken to the post anesthesia care unit in stable condition. She tolerated the procedure well. Nick Schilling PA-C, was present for the entire procedure. He was critical for patient positioning, prepping, draping, retraction exposure, wound closure and application of sterile dressing. I attest to the content of the Intraoperative Record and any orders documented therein. Any exceptions are noted below.
[2022-10-26] MEDS: HYDROmorphone INJ 1 MG/ML SYRINGE IV PRN ×5 (13:09→13:47)
--- NOTE | 2022-10-26 13:14 | XRay Report ---
SINGLE VIEW PELVIS; SINGLE VIEW LEFT HIP CLINICAL HISTORY: Postoperative examination. FINDINGS: An AP portable view of the hips and lower pelvis with a crosstable lateral portable view of the left hip are compared to study dated 07/18/2022. A bipolar left hip arthroplasty is in near-anato allyson alignment. A single cortical lag screw transfixes the acetabular cup. No acute fracture is identi fied. There are expected postoperative changes overlying the left hip including skin clips, subcutane ous gas, and soft tissue swelling. A right hip arthroplasty is unchanged in position. Sclerotic olmedo e is noted in the sacroiliac joints. IMPRESSION: Expected postoperative findings status post left hip arthroplasty. No acute fracture is s een. ACT 112: Negative or not required by law. Electronically signed by: Raimundo Weston M.D. 10/26/2022 1:12 PM
--- NOTE | 2022-10-26 13:48 | Fluoroscopy Report ---
FL hip LT 1V CLINICAL HISTORY: Left anterior hip arthroplasty. COMPARISON STUDY: None. FLUOROSCOPY TIME: 23 seconds FLUOROSCOPY IMAGES: 1 Ka,r: 3.2 mGy FINDINGS: Status post left total hip arthroplasty. The hardware appears intact. No fracture or disloc ation. IMPRESSION: Fluoroscopic assistance as above. ACT 112: Negative or not required by law. Electronically signed by: Aden Guerra M.D. 10/26/2022 1:46 PM
[2022-10-26] MEDS ORDERED: oxyCODONE HCL IR 5 MG TAB (IMMEDIATE RELEASE) PO PRN (14:34)
[2022-10-26] MEDS ORDERED: PHARMACY GLYCEMIC MGMT CONSULT PRN (14:34)
[2022-10-26] MEDS ORDERED: bisacodyL 10 MG SUPP PR PRN (14:34)
[2022-10-26] MEDS ORDERED: HYDROmorphone INJ 0.5 MG/0.5 ML SYR IV PRN (14:34)
[2022-10-26] MEDS ORDERED: METOCLOPRAMIDE HCL INJ 5 MG/ML 2 ML VIAL IV PRN (14:34)
[2022-10-26] MEDS ORDERED: SODIUM CHLORIDE 0.9% 1000ML 1,000 ML IV SCH (14:34)
[2022-10-26] MEDS ORDERED: MAGNESIUM HYDROXIDE SUSP 30 ML UDC PO PRN (14:34)
[2022-10-26] MEDS ORDERED: NALOXONE HCL 0.4 MG/1 ML VIAL/CARP IV PRN (14:34)
--- NOTE | 2022-10-26 14:42 | Anesthesiology Progress Note ---
Date of Service October 26, 2022 Anesthesia Post Procedure Vital Signs Vital Signs: Temp Pulse Pulse Resp BP Pulse Ox O2 Del Method 10/26/22 14:00 75 16 115/67 94 Nasal Cannula 10/26/22 13:45 36.8 C 75 15 120/63 97 Nasal Cannula 10/26/22 13:35 83 17 123/68 95 Room Air 10/26/22 13:25 75 17 125/66 96 Oxymask 10/26/22 13:15 78 18 140/80 98 Oxymask 10/26/22 13:05 80 18 150/85 H 100 Oxymask 10/26/22 12:55 36.3 C L 90 16 151/81 H 100 Oxymask 10/26/22 08:26 Room Air 10/26/22 08:26 36.6 C 68 18 125/78 98 Room Air O2 Flow Rate 10/26/22 14:00 2 10/26/22 13:45 2 10/26/22 13:35 10/26/22 13:25 5 10/26/22 13:15 5 10/26/22 13:05 9 10/26/22 12:55 9 10/26/22 08:26 10/26/22 08:26 Pain Intensity Left Hip: Pain Intensity: 2 Transfer of Care Handoff Completed per policy Notes Mental Status: alert / awake / arousable Patient Amnestic to Procedure: Yes Nausea / Vomiting: adequately controlled Pain: adequately controlled Airway Patency, RR, SpO2: stable & adequate BP & HR: stable & adequate Hydration State: stable & adequate Anesthetic Complications: no major complications apparent
--- NOTE | 2022-10-26 14:52 | Pharmacy Report ---
Pharmacy Glycemic Short Note 2 - Date of Service October 26, 2022 - Glycemic Short BSG Results (Last 24 hours): 10/26/22 10/26/22 08:38 12:58 POC Glucose 116 H 214 H OUTPATIENT ANTIDIABETIC REGIMEN: * Glimepiride 8 mg PO daily before breakfast * Tirzepatide (Mounjaro) 2.5 mg SC once weekly * HbA1c: 5.8% (10/02/22) ASSESSMENT: * 62 yo F admitted on 10/26/22 following a left total hip arthroplasty. Pharmacy has been consulted to assist with inpatient glycemic management. Patient is a well controlled Type 2 diabetic as an outpatient. Please refer to outpatient regimen and most recent HbA1c above. * Received 8 mg of PO Dexamethasone preoperatively as well as 4 mg IV intraoperatively. Is ordered a T2DM diet. Will follow up with nursing to ensure patient is tolerating diet. BSGs have been 116-214 mg/dL. * Will give a one time basal dose to cover for steroid induced hyperglycemia. Reassess basal in the AM. Novolog will be started based on weight/stress of 3. PLAN FOR INPATIENT GLYCEMIC CONTROL: * Hold outpatient oral diabetes medications * Basal insulin * Lantus 25 units SC x 1 * Bolus insulin * NovoLog per scale ACHS or Q6hrs while NPO * Goal Range: Low 110 mg/dL - High 140 mg/dL * Correction Factor: 15 mg/dL/unit * Nutritional / Prandial insulin per carb ratio of 1 unit per 6 grams CHO consumed
[2022-10-26] MEDS ORDERED: LANTUS PER UNIT CHARGE SC STA (14:53)
[2022-10-26] MEDS ORDERED: DEXTROSE 50% 50 ML SYRINGE IV PRN (15:00)
[2022-10-26] MEDS ORDERED: GLUCOSE 10 TAB/TUBE PO PRN (15:00)
[2022-10-26] MEDS ORDERED: GLUCOSE 40% GEL 15 GM TUBE PO PRN (15:00)
[2022-10-26] MEDS ORDERED: CARBOHYDRATES FOR HYPOGLYCEMIA PO PRN (15:00)
[2022-10-26] MEDS ORDERED: GLUCAGON FOR INJ 1 MG VIAL IM PRN (15:00)
[2022-10-26] MEDS: KETOROLAC 30 MG/ML VIAL IV SCH ×2 (16:06→21:12)
[2022-10-26] MEDS: ACETAMINOPHEN 500 MG TAB PO SCH ×2 (16:06→21:11)
[2022-10-26] MEDS: INSULIN ASPART PER UNIT CHARGE SC SCH ×2 (17:36→21:14)
[2022-10-26] MEDS: ceFAZolin 2000MG 2,000 MG/15 ML SYR IV SCH (18:40)
[2022-10-26] MEDS: DOCUSATE SODIUM 100 MG CAP PO SCH (20:17)
[2022-10-26] MEDS: ASPIRIN 81 MG ECTAB PO SCH (20:19)
[2022-10-26] MEDS ORDERED: SENNA 8.6 MG TAB PO SCH (21:00)
[2022-10-27] MEDS ORDERED: INSULIN ASPART PER UNIT CHARGE SC ONE (02:00)
[2022-10-27] MEDS: ceFAZolin 2000MG 2,000 MG/15 ML SYR IV SCH (02:44)
[2022-10-27] MEDS: KETOROLAC 30 MG/ML VIAL IV SCH ×2 (02:44→09:02)
[2022-10-27] MEDS: ACETAMINOPHEN 500 MG TAB PO SCH (05:44)
--- NOTE | 2022-10-27 05:45 | Orthopedic Progress Note ---
Date of Service October 27, 2022 Assessment & Plan (1) Status post left hip replacement: Overall she is doing very well. She is not having much pain in the left hip. She will be seen by physical therapy today for ambulation and range of motion exercises. She is on aspirin for DVT prophylaxis. She can be discharged home later today. She will follow-up with orthopedics in 2 weeks. Usman Parson was seen and examined at bedside this morning. Overall she is doing fairly well. She is not having too much pain in the left hip. She has been up and ambulating to the bathroom. She has no complaints.. Review of Systems All systems reviewed & are unremarkable except as noted in HPI & below. Physical Exam On physical examination of the left hip, the dressing is clean and dry. Her leg is out full extension. She has active dorsiflexion plantarflexion of her left ankle.. Results & Data Results & Data Laboratory Results . Diagnostic Findings Postoperative x-rays of the left hip show the prosthesis to be in anatomic alignment without any evidence of fracture, dislocation, or loosening. PG Care Time/CCT Total # of Minutes Spent Total Time Spent with Patient: Total time spent is greater than 50% in coordination of care (as documented) at patient's floor/unit and/or counseling patient: Coding Level of Care Code 95645 Post Operative Follow-Up Diagnoses Status post left hip replacement Z96.642
--- NOTE | 2022-10-27 05:46 | Discharge Summary ---
Date of Service October 27, 2022 Principal Diagnosis Same as "Discharge Diagnosis" noted below under Discharge Instructions. Discharge Exam On physical examination of the left hip, the dressing is clean and dry. Her leg is out full extension. She has active dorsiflexion plantarflexion of her left ankle.. Discharge Data Procedures Performed Operation Date: 10/26/22 10:30 Actual Procedures p Left Anterior Total Hip Arthroplasty(Left) - Nick Parrish DO Ordered Studies 10/26/22 10:30 FL hip LT 1V Routine Hospital Course (1) Status post left hip replacement: On October 26, 2022 Blank arrived at [facility] and underwent a left hip replacement without complication. She had a spinal anesthetic. Postoperatively she was started on aspirin for DVT prophylaxis and transferred to the general orthopedic floors. Her hospital course was uneventful. On postop day #1, her vital signs are stable and her pain was well controlled. She was able to participate well with physical therapy doing ambulation and range of motion exercises. She was then discharged home. She will follow-up with orthopedics in 2 weeks. PG Care Time/CCT Total # of Minutes Spent Total Time Spent with Patient: Total time spent is greater than 50% in coordination of care (as documented) at patient's floor/unit and/or counseling patient: Discharge Plan Discharge Items Patient Disposition: Home - Home Health Services Reason For Visit: DJD Left Hip Discharge Diagnosis: Left hip replacement Activity: As commented below Non-emergency contact: Surgeon Call non-emergency contact if: your wound has increased redness and your wound has increased drainage Follow-up/Referrals: Nicholas Chou D.O. [Primary Care Provider] - Diet: Regular Addtl Attending Provider Instructions: Activity and Therapy Recommendations: * If you are using [facility] then therapy will be provided at your home until they feel you have accomplished all of your goals. * If you are using [facility] then Physical Therapy will be provided until they feel you are ready to start Outpatient Physical Therapy. * If you are not using home therapy then Outpatient Physical Therapy should start about 3-5 days from your day of surgery. Therapy will last about 6-10 weeks * You were shown a series of exercises in the hospital. Do these exercises three times each day including the exercises you were shown in physical therapy. * Get up and walk several times each day.~ For the first four weeks, try not to stand or walk for more than one hour at a time. If you do stand or walk for more than one hour, you will not hurt anything, but your leg will likely swell.~~ * As you feel comfortable, you may change from the walker or crutches to a cane and~then to independent walking. Medications: * Narcotic You will likely be sent home from the hospital with a prescription for the narcotic pain medication that worked best throughout your stay. * Aspirin Most patients will be required to take Aspirin 81mg twice a day for 6 weeks after surgery. This is obtained [id number] and a prescription is not necessary. * Other medications may be prescribed for specific circumstances. If you have any questions, please call the office at . * Resume previous home medications unless otherwise instructed TEDs/Elastic Stockings: The white elastic stockings help limit swelling and prevent blood clots from forming in your legs. The more you wear them, the more they work. Wear them for six weeks. Dressing Care: Leave the Silverlon dressing in place for 7 days. After 7 days you may remove the dressing. If the incision is not draining then you may leave the corinna open to air. If there is a little bit of drainage or if the corinna are getting stuck on your clothing then cover the incision with a dry dressing. The corinna will be removed at your 2 week follow-up appointment. Showering: You may shower with the Silverlon dressing in place. Do not let the shower spray hit the dressing directly. Pat the Silverlon dressing dry. If the dressing becomes wet underneath, then simply remove the dressing. Keep the incision dry until you are 7 days out from the day of surgery. After 7 days you may remove the Silverlon dressing and shower with the corinna exposed. Let soapy water run over the corinna and pat them dry. Do not scrub or soak the incision. Things To Watch For: * Drainage from the incision site that occurs more than one week after your surgery. * Increased redness at the incision site. * Fever above 102 degrees Fahrenheit. * Unusual chest pain or shortness of breath. * Call [facility] at with any of the above problems Follow-Up Visit: Follow-up with Dr. Parrish's PA (Nick Schilling) 2-3 weeks after your day of surgery. He will remove your corinna and answer any questions. If you have any additional questions or concerns, Dr Parrish is usually in the office at the same time and will be available An appointment was probably scheduled when you signed-up for surgery in the office. If you have any questions call Office Instructions: More detailed instructions as well as Frequently Asked Questions were provided in a folder by our office when you signed-up for surgery. Please review these instructions when you get home. If you have any further questions or concerns, please feel free to call the office at [phone] Pending Studies at Discharge: No Stand-Alone Forms: My [facility] Medications and DC Order Prescriptions: New aspirin [Adult Aspirin Regimen] 81 mg tablet,delayed release (DR/EC) 81 mg PO BID Qty: 84 0RF oxycodone-acetaminophen 5-325 mg tablet 1 tab PO Q6H PRN (Reason: pain) Qty: 30 0RF Continued tramadol 50 mg tablet 50 mg PO Q6H PRN (Reason: pain) Qty: 30 0RF tramadol 50 mg tablet 50 mg PO Q6H PRN (Reason: pain) Qty: 30 0RF levothyroxine 175 mcg Tablet 175 mcg PO QAM Tysabri 300 mg/15 mL Solution 1 dose IV MONTHLY sennosides 17.2 mg tablet 17.2 mg PO HS PRN (Reason: constipation) Qty: 10 0RF Rx Instructions: Hold for loose stools. Can buy OTC. famotidine 40 mg Tablet 40 mg PO QAM naproxen 250 mg Tablet 250 mg PO BID PRN (Reason: Pain) acetaminophen 500 mg Tablet 500 mg PO TID PRN (Reason: Pain) glimepiride 4 mg Tablet 8 mg PO QAM Rx Instructions: administer with breakfast losartan 25 mg Tablet 25 mg PO QAM gabapentin 300 mg capsule 300 mg PO DAILY duloxetine 60 mg capsule,delayed release(DR/EC) 60 mg PO QAM cholecalciferol (vitamin D3) [Vitamin D3] 50 mcg (2,000 unit) Tablet 50 mcg PO QAM Mounjaro 2.5 mg/0.5 mL Pen Injector 2.5 mg SUBCUT WK polyethylene glycol 3350 [Miralax] 17 gram/dose Powder 17 g PO DAILY Admission Data Admit Date/Time: 10/26/22 12:52 Attending Provider: Nick Parrish Admit Provider: Nick Parrish Primary Care Provider: Nicholas Chou
[2022-10-27] MEDS ORDERED: LEVOTHYROXINE SODIUM 175 MCG TABLET PO SCH (06:30)
[2022-10-27] MEDS: DOCUSATE SODIUM 100 MG CAP PO SCH (08:47)
[2022-10-27] MEDS: ASPIRIN 81 MG ECTAB PO SCH (08:47)
[2022-10-27] MEDS: INSULIN ASPART PER UNIT CHARGE SC SCH (08:53)
[2022-10-27] MEDS ORDERED: FAMOTIDINE 40 MG TABLET PO SCH (09:00)
[2022-10-27] MEDS ORDERED: MULTIVITAMIN TAB PO SCH (09:00)
[2022-10-27] MEDS ORDERED: GABAPENTIN 300 MG CAP PO SCH (09:00)
[2022-10-27] MEDS ORDERED: DULoxetine HCL 60 MG CAP PO SCH (09:00)
[2022-10-27] MEDS ORDERED: LOSARTAN POTASSIUM 25 MG TAB PO SCH (09:00)
== END 2022-10-27 11:26 | disposition home health service (06) ==
LOC: ASU 07:58 → 3W 07:58